=== PATIENT | male | born 1940 | race Caucasian/White ===

== ENCOUNTER → 2016-08-15 | Outpatient (CLI) | payer MEDICARE, BC ==
[2016-08-15 08:35] LABS: CHLORIDE,CL 105 mmol/L (98-110); SODIUM,NA 141 mmol/L (136-146)
== END ==
LOC: MW.CHRC 07:59
PROVIDERS: ATTEND Family Medicine
DX: I10 Essential (primary) hypertension (principal); E78.00 Pure hypercholesterolemia, unspecified; E11.9 Type 2 diabetes mellitus without complications; I25.10 Atherosclerotic heart disease of native coronary artery without angina pectoris
CPT/HCPCS: 36415; 80053; 80061; 83036; 99215

== ENCOUNTER 2019-12-17 11:14 | Emergency (ER) | payer MEDICARE, BC ==
[2019-12-17] MEDS ORDERED: Sodium Chloride 0.9% 2.5 ML Syringe FLUSH PRN (11:31)
[2019-12-17] MEDS ORDERED: Sodium Chloride 0.9% 10 ML Syringe FLUSH PRN (11:31)
--- NOTE | 2019-12-17 11:38 | EDM.PDOC ---
ED HPI GENERAL MEDICAL PROBLEM - General Chief Complaint: Cardiovascular Problem Stated Complaint: HIGH BP, LIGHT HEADED Time Seen by Provider: 12/17/19 11:16 Source of Information: Reports: Patient History Limitations: Reports: No Limitations - History of Present Illness INITIAL COMMENTS - FREE TEXT/NARRATIVE: HISTORY AND PHYSICAL: History of present illness: Patient is a 79-year-old male who presents to the emergency room with complaints of elevated blood pressure and lightheaded. Patient has been seeing a learning and development administrator in [place] for his intermittent chest pain and hypertension. He states he has seen them several times over the past few months and they have been adjusting his home medications. Most recently he was taken off of his atenolol and lisinopril and started on amlodipine, losartan and given nitro sublingual tabs. He also had a cardiac event monitor removed yesterday, results are pending. He does track his blood pressures on his phone daily. This mo rning he woke up with the sensation of feeling light headed and diaphoretic. When he checked his blood pressure it was 200/100's, decided to come in for evaluation. He states he continues to have intermittent chest pain, last episode was last evening. The lightheadedness is constant, states this does not get better or worse with physical activity/head movement/rest. Patient denies any fever, chills, headache, change in vision, syncope or near syncope. Denies any chest pain, back pain, shortness of breath or cough. Denies any abdominal pain, nausea, vomiting, diarrhea, constipation or dysuria. Has not noted any blood in urine or stool. Patient has been eating and drinking appropriately. Past medical history of DM 2, HTN, and cardiac bypass. Review of systems: As per history of present illness and below otherwise all systems reviewed and negative. Past medical history: As per history of present illness and as reviewed below otherwise noncontributory. Surgical history: As per history of present illness and as reviewed below otherwise noncontributory. Social history: See social history for further information Family history: As per history of present illness and as reviewed below otherwise noncontributory. Physical exam: General: Well developed and well nourished 79 year old male. Alert and orientated x 3. Nontoxic in appearance and in no acute distress. Vital signs are stable and have been reviewed by me. Nursing notes were reviewed. HEENT: Atraumatic, normocephalic, pupils equal and reactive bilaterally, negative for conjunctival pallor or scleral icterus, mucous membranes moist, TMs normal bilaterally, throat clear, neck supple, nontender, trachea midline. No drooling or trismus noted. No meningeal signs. No hot potato voice noted. Lungs: Clear to auscultation, breath sounds equal bilaterally, chest nontender. Normal work of breathing, no accessory muscles used. Heart: S1S2, regular rate and rhythm without overt murmur Abdomen: Soft, nondistended, BS, nontender. Negative for masses or hepatosplenomegaly. Negative for costovertebral tenderness. Skin: Intact, warm, dry. No lesions or rashes noted. Hematologic: No petechiae or purpra. Mucosa appropriate color and normal nail bed color and refill. Extremities: Atraumatic, moves all extremities per self without difficulty or deficits, negative for cords or calf pain. Neurovascular unremarkable. Neuro: Awake, alert, oriented. Cranial nerves II through XII unremarkable. Cerebellum unremarkable. Motor and sensory unremarkable throughout. Exam nonfocal. Notes: Well patient is waiting for lab results to return his blood pressure has returned to normotensive. No medications will be given while here. Lab work is unremarkable. CT shows no findings of PE. There is mild peripheral fibroids within both lungs. Coronary artery calcification noted. At 1320 I discussed all findings with patient and (via FT). I did offer admission for further observation, risk vs benefits were reviewed in great detail. Patient and decline admission, states he will call his learning and development administrator today and discuss his ER visit and create follow-up (close relationship with provider). We discussed signs and symptoms that would prompt them to return to the Emergency Department. Medication, follow up and supportive care measures were reviewed and discussed. Voices understanding and is agreeable to plan of care. Denies any further questions or concerns at this time. Diagnostics: CBC, CMP, Troponin, EKG, CXR Therapeutics: Saline lock Prescription: None Impression: Hypertension Plan: 1. Today your lab work was normal. Your CT scan of your chest shows coronary artery calcification, but no evidence of blood clot. Your blood pressure initially was high, but came down on it's own without additional 2. Please follow up with your learning and development administrator. 3. We always encourage you to follow up with your primary care provider or recommended specialist in the next few days for re-evaluation and further care/management. If your symptoms should worsen, new symptoms develop or any of the signs and symptoms we discussed should arise please return to the emergency room or call 911 (if needed). Definitive disposition and diagnosis as appropriate pending reevaluation and review of above. - Related Data Allergies Allergy/AdvReac Type Severity Reaction Status Date / Time No Known Allergies Allergy Verified 07/28/13 08:05 Home Meds: Home Meds Ezetimibe 10 mg PO DAILY 12/17/19 [History] Finasteride 5 mg PO DAILY 12/17/19 [History] Furosemide 20 mg PO DAILY 12/17/19 [History] Metoprolol Succinate 50 mg PO DAILY 12/17/19 [History] Montelukast [Singulair] 10 mg PO DAILY 12/17/19 [History] Nitroglycerin 0.4 mg SL ASDIRECTED 12/17/19 [History] Pravastatin [Pravachol] 40 mg PO BID 12/17/19 [History] Tamsulosin [Flomax] 0.4 mg PO DAILY 12/17/19 [History] Torsemide [Demadex] 20 mg PO BID 12/17/19 [History] amLODIPine [Norvasc] 10 mg PO DAILY 12/17/19 [History] carvediloL [Carvedilol] 6.25 mg PO BID 12/17/19 [History] diazePAM [Valium.] 5 mg PO BID 12/17/19 [History] metFORMIN [Glucophage] 500 mg PO BID 12/17/19 [History] ED ROS GENERAL - Review of Systems Review Of Systems: Comprehensive ROS is negative, except as noted in HPI. ED EXAM, GENERAL - Physical Exam Exam: See Below (See dictation) Course - Vital Signs Last Recorded V/S: Last Vital Signs Temp 97.5 F 12/17/19 13:44 Pulse 86 12/17/19 13:44 Resp 18 12/17/19 13:44 BP 150/77 H 12/17/19 13:44 Pulse Ox 94 L 12/17/19 13:44 - Orders/Labs/Meds Orders: Active Orders 24 hr Category Date Time Status Cardiac Monitoring [RC] . DIRECTED Care 12/17/19 11:31 Active EKG Documentation Completion [RC] STAT Care 12/17/19 11:29 Active Sodium Chloride 0.9% [Saline Flush] Med 12/17/19 11:31 Active 10 ml FLUSH ASDIRECTED PRN Sodium Chloride 0.9% [Saline Flush] Med 12/17/19 11:31 Active 2.5 ml FLUSH ASDIRECTED PRN Saline Lock Insert [OM.PC] Stat Oth 12/17/19 11:31 Ordered Medication Orders Sodium Chloride (Saline Flush) 10 ml FLUSH ASDIRECTED PRN PRN Reason: Keep Vein Open Last Admin: 12/17/19 13:17 Dose: 10 ml Documented by: MORGAN Sodium Chloride (Saline Flush) 2.5 ml FLUSH ASDIRECTED PRN PRN Reason: Keep Vein Open Last Admin: 12/17/19 13:18 Dose: 2.5 ml Documented by: MORGAN Labs: Laboratory Tests 12/17/19 12/17/19 12/17/19 Range/Units 11:20 11:20 11:20 WBC 9.56 (4.0-11.0) K/uL RBC 5.69 (4.50-5.90) M/uL Hgb 15.7 (13.0-17.0) g/dL Hct 49.8 (38.0-50.0) % MCV 87.5 (80.0-98.0) fL MCH 27.6 (27.0-32.0) pg MCHC 31.5 (31.0-37.0) g/dL RDW Std Deviation 45.9 (28.0-62.0) fl RDW Coeff of Carissa 14 (11.0-15.0) % Plt Count 235 (150-400) K/uL MPV 10.10 (7.40-12.00) fL Neut % (Auto) 73.6 (48.0-80.0) % Lymph % (Auto) 13.9 L (16.0-40.0) % [place] % (Auto) 8.9 (0.0-15.0) % Eos % (Auto) 3.1 (0.0-7.0) % Baso % (Auto) 0.5 (0.0-1.5) % Neut # (Auto) 7.0 H (1.4-5.7) K/uL Lymph # (Auto) 1.3 (0.6-2.4) K/uL [place] # (Auto) 0.9 H (0.0-0.8) K/uL Eos # (Auto) 0.3 (0.0-0.7) K/uL Baso # (Auto) 0.1 (0.0-0.1) K/uL Nucleated RBC % 0.0 /100WBC Nucleated RBCs # 0 K/uL Sodium 140 (136-148) mmol/L Potassium 3.8 (3.5-5.1) mmol/L Chloride 100 (98-107) mmol/L Carbon Dioxide 30.6 (21.0-32.0) mmol/L BUN 17 (7.0-18.0) mg/dL Creatinine 1.2 (0.8-1.3) mg/dL Est Cr Clr Drug Dosing 49.92 mL/min Estimated GFR (MDRD) 58.4 ml/min Glucose 201 H (74-106) mg/dL Calcium 8.9 (8.5-10.1) mg/dL Total Bilirubin 0.5 (0.2-1.0) mg/dL AST 21 (15-37) IU/L ALT 38 (14-63) IU/L Alkaline Phosphatase 91 (46-116) U/L Troponin I < 0.050 (0.000-0.056) ng/mL B-Natriuretic Peptide 23 (<100) PG/ML Total Protein 7.8 (6.4-8.2) g/dL Albumin 3.9 (3.4-5.0) g/dL Globulin 3.9 (2.6-4.0) g/dL Albumin/Globulin Ratio 1.0 (0.9-1.6) Urine Color Urine Appearance Urine pH (5.0-8.0) Ur Specific [place] (1.001-1.035) Urine Protein (NEGATIVE) mg/dL Urine Glucose (UA) (NEGATIVE) mg/dL Urine Ketones (NEGATIVE) mg/dL Urine Occult Blood (NEGATIVE) Urine Nitrite (NEGATIVE) Urine Bilirubin (NEGATIVE) Urine Urobilinogen (<2.0) EU/dL Ur Leukocyte Esterase (NEGATIVE) 12/17/19 Range/Units 13:10 WBC (4.0-11.0) K/uL RBC (4.50-5.90) M/uL Hgb (13.0-17.0) g/dL Hct (38.0-50.0) % MCV (80.0-98.0) fL MCH (27.0-32.0) pg MCHC (31.0-37.0) g/dL RDW Std Deviation (28.0-62.0) fl RDW Coeff of Carissa (11.0-15.0) % Plt Count (150-400) K/uL MPV (7.40-12.00) fL Neut % (Auto) (48.0-80.0) % Lymph % (Auto) (16.0-40.0) % [place] % (Auto) (0.0-15.0) % Eos % (Auto) (0.0-7.0) % Baso % (Auto) (0.0-1.5) % Neut # (Auto) (1.4-5.7) K/uL Lymph # (Auto) (0.6-2.4) K/uL [place] # (Auto) (0.0-0.8) K/uL Eos # (Auto) (0.0-0.7) K/uL Baso # (Auto) (0.0-0.1) K/uL Nucleated RBC % /100WBC Nucleated RBCs # K/uL Sodium (136-148) mmol/L Potassium (3.5-5.1) mmol/L Chloride (98-107) mmol/L Carbon Dioxide (21.0-32.0) mmol/L BUN (7.0-18.0) mg/dL Creatinine (0.8-1.3) mg/dL Est Cr Clr Drug Dosing mL/min Estimated GFR (MDRD) ml/min Glucose (74-106) mg/dL Calcium (8.5-10.1) mg/dL Total Bilirubin (0.2-1.0) mg/dL AST (15-37) IU/L ALT (14-63) IU/L Alkaline Phosphatase (46-116) U/L Troponin I (0.000-0.056) ng/mL B-Natriuretic Peptide (<100) PG/ML Total Protein (6.4-8.2) g/dL Albumin (3.4-5.0) g/dL Globulin (2.6-4.0) g/dL Albumin/Globulin Ratio (0.9-1.6) Urine Color YELLOW Urine Appearance CLEAR Urine pH 7.5 (5.0-8.0) Ur Specific [place] 1.010 (1.001-1.035) Urine Protein NEGATIVE (NEGATIVE) mg/dL Urine Glucose (UA) NEGATIVE (NEGATIVE) mg/dL Urine Ketones NEGATIVE (NEGATIVE) mg/dL Urine Occult Blood NEGATIVE (NEGATIVE) Urine Nitrite NEGATIVE (NEGATIVE) Urine Bilirubin NEGATIVE (NEGATIVE) Urine Urobilinogen 0.2 (<2.0) EU/dL Ur Leukocyte Esterase NEGATIVE (NEGATIVE) Meds: Medications Generic Name Dose Route Start Last Admin Trade Name Freq PRN Reason Stop Dose Admin Sodium Chloride 10 ml 12/17/19 11:31 12/17/19 13:17 Saline Flush FLUSH 10 ml ASDIRECTED PRN Administration Keep Vein Open Sodium Chloride 2.5 ml 12/17/19 11:31 12/17/19 13:18 Saline Flush FLUSH 2.5 ml ASDIRECTED PRN Administration Keep Vein Open Departure - Departure Time of Disposition: 13:06 Disposition: Home, Self-Care 01 Clinical Impression: Hypertension Qualifiers: Hypertension type: essential hypertension Qualified Code(s): I10 - Essential (primary) hypertension Instructions: Hypertension, Adult, [id number] Referrals: Malick Sweet MD [Primary Care Provider] - Forms: ED Department Discharge Additional Instructions: The following information is given to patients seen in the emergency department who are being discharged to home. This information is to outline your options for follow-up care. We provide all patients seen in our emergency department with a follow-up referral. The need for follow-up, as well as the timing and circumstances, are variable depending upon the specifics of your emergency department visit. If you don't have a primary care physician on staff, we will provide you with a referral. We always advise you to contact your personal physician following an emergency department visit to inform them of the circumstance of the visit and for follow-up with them and/or the need for any referrals to a consulting specialist. The emergency department will also refer you to a specialist when appropriate. This referral assures that you have the opportunity for follow-up care with a specialist. All of these measure are taken in an effort to provide you with optimal care, which includes your follow-up. Under all circumstances we always encourage you to contact your private physician who remains a resource for coordinating your care. When calling for follow-up care, please make the office aware that this follow-up is from your recent emergency room visit. If for any reason you are refused follow-up, please contact the [facility] Emergency Department at and asked to speak to the emergency department charge nurse. [facility] [address], [place] [address] [facility] [address] [place] [address] Thank you for choosing the [facility] emergency department in [place] for your medical needs today. It was a pleasure caring for you. Today you were seen in the emergency department for high blood pressure and lightheadedness. 1. Today your lab work was normal. Your CT scan of your chest shows coronary artery calcification, but no evidence of blood clot. Your blood pressure initially was high, but came down on it's own without additional 2. Please follow up with your learning and development administrator. 3. We always encourage you to follow up with your primary care provider or recommended specialist in the next few days for re-evaluation and further care/management. If your symptoms should worsen, new symptoms develop or any of the signs and symptoms we discussed should arise please return to the emergency room or call 911 (if needed). Sepsis Event Note (ED) - Focused Exam Vital Signs: Vital Signs Temp Pulse Resp BP Pulse Ox 12/17/19 13:44 97.5 F 86 18 150/77 H 94 L 12/17/19 12:30 75 18 147/79 H 96 12/17/19 12:00 72 17 163/85 H 98 12/17/19 11:31 97.8 F 94 20 212/109 H 94 L - My Orders Last 24 Hours: My Active Orders 12/17/19 11:29 EKG Documentation Completion [RC] STAT 12/17/19 11:31 Cardiac Monitoring [RC] . DIRECTED Sodium Chloride 0.9% [Saline Flush] 10 ml FLUSH ASDIRECTED PRN Sodium Chloride 0.9% [Saline Flush] 2.5 ml FLUSH ASDIRECTED PRN Saline Lock Insert [OM.PC] Stat - Assessment/Plan Last 24 Hours: My Active Orders 12/17/19 11:29 EKG Documentation Completion [RC] STAT 12/17/19 11:31 Cardiac Monitoring [RC] . DIRECTED Sodium Chloride 0.9% [Saline Flush] 10 ml FLUSH ASDIRECTED PRN Sodium Chloride 0.9% [Saline Flush] 2.5 ml FLUSH ASDIRECTED PRN Saline Lock Insert [OM.PC] Stat
[2019-12-17 12:05] LABS: BLOOD UREA NITROGEN,BUN 17 mg/dL (7.0-18.0); CARBON DIOXIDE,CO2 30.6 mmol/L (21.0-32.0); CHLORIDE,CL 100 mmol/L (98-107); GLUCOSE RANDOM 201 mg/dL (74-106); POTASSIUM,K 3.8 mmol/L (3.5-5.1); SODIUM,NA 140 mmol/L (136-148)
--- NOTE | 2019-12-17 12:07 | CR ---
Chest: Portable view of the chest was obtained. Comparison: Prior chest x-ray of 09/12/17. Heart size is within normal limits for portable technique. Tortuous thoracic aorta is noted. Previous sternotomy is seen. Lungs are clear with no acute parenchymal change. Bony structures are grossly intact. Impression: 1. Nothing acute is appreciated on portable chest x-ray. Diagnostic code #2 This report was dictated in MDT
--- NOTE | 2019-12-17 13:02 | CT ---
CT chest Technique: Multiple axial sections through the chest were obtained. Intravenous contrast was utilized. Study performed as a pulmonary angiogram protocol. Findings: Pulmonary arteries are well opacified. No filling defects are seen to indicate pulmonary embolism. Coronary artery calcification is seen. Aorta shows atherosclerotic change with no aneurysm. Mediastinum and hilar regions show no adenopathy. No axillary adenopathy is identified. Slight interstitial fibrosis is seen within the periphery of both lungs. No acute parenchymal change is appreciated. Bone window settings were reviewed. Scattered degenerative change is noted within the spine. No acute osseous finding is appreciated. Impression: 1. No findings of pulmonary embolism. 2. Mild peripheral fibrosis within both lungs. 3. Coronary artery calcification and other findings as noted above. Diagnostic code #3 This report was dictated in MDT
[2019-12-17] MEDS ORDERED: Iopamidol 755 MG/ML 50 ML Bottle IV ONE (19:15)
== END 2019-12-17 13:50 | disposition home or self-care (01) ==
LOC: MW.ED 11:14
DX: I10 Essential (primary) hypertension (principal); E11.9 Type 2 diabetes mellitus without complications; Z79.84 Long term (current) use of oral hypoglycemic drugs; Z79.899 Other long term (current) drug therapy
CPT/HCPCS: 36415; 71045; 71275; 80053; 81003; 83880; 84484; 85025; 93005; 99284; Q9967

== ENCOUNTER 2019-12-20 14:40 | Observation (INO) | payer MEDICARE, BC, OTHER ==
[2019-12-20] MEDS ORDERED: Sodium Chloride 0.9% 10 ML Syringe FLUSH PRN (15:12)
[2019-12-20] MEDS ORDERED: Sodium Chloride 0.9% 2.5 ML Syringe FLUSH PRN (15:12)
[2019-12-20] MEDS ORDERED: Aspirin 81 MG Tab.Chew PO ONE (15:13)
--- NOTE | 2019-12-20 15:21 | EDM.PDOC ---
ED HPI GENERAL MEDICAL PROBLEM - General Chief Complaint: Chest Pain Stated Complaint: HIGH BLOOD PRESSURE Time Seen by Provider: 12/20/19 14:45 Source of Information: Reports: Patient History Limitations: Reports: No Limitations - History of Present Illness INITIAL COMMENTS - FREE TEXT/NARRATIVE: HISTORY AND PHYSICAL: History of present illness: Patient is a 79-year-old male who presents to the ED today with concern of intermittent chest pain that is been off-and-on over the past 2 to 3 days. Patient states that he is unsure if his blood pressure is related to the chest p ain as he has had recent blood pressure medication adjustments. Patient states 1 week ago he saw his drill grinder in [place] and they took him off some of his blood pressure medications and thought that maybe this was related to his chest pain. Patient states that his chest pain is exertional and also become short of breath with activity. 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 Patient states he did have a stress test 6 months ago and was told at that time that things looked okay. Patient states he did take 1 baby aspirin today and states he had an episode of chest pain 1 hour prior to arrival to the ED but is not currently having chest pain at this time. Patient states when the chest pain occurs that it radiates into the left shoulder and states that it lasts a few seconds before it disappears. Denies any other symptoms or concerns. Patient states he also has a history of type 2 diabetes and a strong family history of CAD. Patient denies fever, chills, or cough. Denies headache, neck stiff ness, change in vision, syncope, or near syncope. Denies nausea, vomiting, abdominal pain, diarrhea, constipation, or dysuria. Has not noted any blood in urine or stool. Patient has been eating and drinking appropriately. Review of systems: As per history of present illness and below otherwise all systems reviewed and negative. Past medical history: As per history of present illness and as reviewed below otherwise noncontributory. Surgical history: As per history of present illness and as reviewed below otherwise noncontributory. Social history: See social history for further information Family history: As per history of present illness and as reviewed below otherwise noncontributory. Physical exam: General: Patient is alert, oriented, and in no acute distress. Patient laying comfortably on exam table. HEENT: Atraumatic, normocephalic, pupils equal and reactive bilaterally, negative for conjunctival pallor or scleral icterus, mucous membranes moist, TMs normal bilaterally, throat clear, neck supple, nontender, trachea midline. No drooling or trismus noted. No meningeal signs. No hot potato voice noted. Lungs: Clear to auscultation, breath sounds equal bilaterally, chest nontender. Heart: S1S2, regular rate and rhythm without overt murmur Abdomen: Soft, nondistended, nontender. Negative for masses or hepatosplenome yariel. Negative for costovertebral tenderness. Pelvis: Stable nontender. Genitourinary: Deferred. Rectal: Deferred. Skin: Intact, warm, dry. No lesions or rashes noted. Extremities: Atraumatic, negative for cords or calf pain. Neurovascular unremarkable. Neuro: Awake, alert, oriented. Cranial nerves II through XII unremarkable. Cerebellum unremarkable. Motor and sensory unremarkable throughout. Exam nonfocal. Notes: Heart Score 5 (pending troponin) and moderate risk Talked to Dr. Lyon, hospitalist wholesale diamond broker, and will admit patient to observation telemetry. Voices understanding and is agreeable to plan of care. Denies any further questions or concerns at this time. Diagnostics: CBC, CMP, UA, troponin, EKG, chest x-ray, cardiac monitoring, COVID19 Therapeutics: 3 baby ASA, saline lock, Impression: Chest pain r/o ACS Plan: Admission to observation telemetry to Dr. Lyon Definitive disposition and diagnosis as appropriate pending reevaluation and review of above. shoulder and chest pain Pain Score (Numeric/FACES): 8 - Related Data Allergies Allergy/AdvReac Type Severity Reaction Status Date / Time No Known Allergies Allergy Verified 12/20/19 14:53 Home Meds: Home Meds RX: Finasteride 5 mg PO DAILY 12/17/19 [History] RX: Montelukast [Singulair] 10 mg PO DAILY 12/17/19 [History] RX: Nitroglycerin 0.4 mg SL ASDIRECTED 12/17/19 [History] RX: Pravastatin [Pravachol] 80 mg PO DAILY 12/17/19 [History] RX: Tamsulosin [Flomax] 0.4 mg PO DAILY 12/17/19 [History] RX: Torsemide [Demadex] 40 mg PO DAILY 12/17/19 [History] RX: diazePAM [Valium.] 5 mg PO BID 12/17/19 [History] RX: metFORMIN [Glucophage] 1,000 mg PO BID 12/17/19 [History] carvediloL [Carvedilol] 6.25 mg PO BID 12/17/19 [History] Cholecalciferol (Vitamin D3) [Vitamin D3] 5,000 unit PO DAILY 12/20/19 [History] RX: Aspirin [Low Dose Aspirin EC] 81 mg PO DAILY 12/20/19 [History] RX: Losartan [Cozaar] 100 mg PO DAILY 12/20/19 [History] RX: Non-Formulary Medication [NF Drug] 1 tab PO DAILY 12/20/19 [History] Turm/Ging/Ha/Yuc/Wilton/Aldair/Hor [Tumersaid Tablet] 12/20/19 [History] Past Medical History HEENT History: Reports: None Cardiovascular History: Reports: Bypass, Hypertension, SOB on Exertion Respiratory History: Reports: None Gastrointestinal History: Reports: None Genitourinary History: Reports: None Musculoskeletal History: Reports: None Neurological History: Reports: None Psychiatric History: Reports: None Endocrine/Metabolic History: Reports: Diabetes, Type II Hematologic History: Reports: None Immunologic History: Reports: None Oncologic (Cancer) History: Reports: None Dermatologic History: Reports: None - Infectious Disease History Infectious Disease History: Reports: Chicken Pox, Measles Social & Family History - Family History Family Medical History: Noncontributory - Tobacco Use Smoking Status *Q: Former Smoker Used Tobacco, but Quit: Yes Month/Year Tobacco Last Used: 04/1979 - Caffeine Use Caffeine Use: Reports: Coffee - Recreational Drug Use Recreational Drug Use: No ED ROS GENERAL - Review of Systems Review Of Systems: Comprehensive ROS is negative, except as noted in HPI. ED EXAM, GENERAL - Physical Exam Exam: See Below (see dictation) Course - Vital Signs Last Recorded V/S: Last Vital Signs Temp 96.9 F 12/20/19 14:50 Pulse 88 12/20/19 15:22 Resp 21 H 12/20/19 15:22 BP 141/78 H 12/20/19 15:22 Pulse Ox 92 L 12/20/19 15:22 - Orders/Labs/Meds Orders: Active Orders 24 hr Category Date Time Status Admission Status [Patient Status] [ADT] Stat ADT 12/20/19 16:22 Ordered Cardiac Monitoring [RC] . DIRECTED Care 12/20/19 15:12 Active EKG Documentation Completion [RC] STAT Care 12/20/19 15:12 Active CORONAVIRUS COVID-19 PCR PHL Stat Lab 12/20/19 16:19 Ordered Sodium Chloride 0.9% [Saline Flush] Med 12/20/19 15:12 Active 10 ml FLUSH ASDIRECTED PRN Sodium Chloride 0.9% [Saline Flush] Med 12/20/19 15:12 Active 2.5 ml FLUSH ASDIRECTED PRN Saline Lock Insert [OM.PC] Stat Oth 12/20/19 15:12 Ordered Medication Orders Sodium Chloride (Saline Flush) 10 ml FLUSH ASDIRECTED PRN PRN Reason: Keep Vein Open Last Admin: 12/20/19 15:18 Dose: 10 ml Documented by: MILLA Sodium Chloride (Saline Flush) 2.5 ml FLUSH ASDIRECTED PRN PRN Reason: Keep Vein Open Last Admin: 12/20/19 15:18 Dose: 2.5 ml Documented by: MILLA Labs: Laboratory Tests 12/20/19 12/20/19 12/20/19 Range/Units 14:50 14:50 15:30 WBC 11.79 H (4.0-11.0) K/uL RBC 5.85 (4.50-5.90) M/uL Hgb 16.2 (13.0-17.0) g/dL Hct 50.7 H (38.0-50.0) % MCV 86.7 (80.0-98.0) fL MCH 27.7 (27.0-32.0) pg MCHC 32.0 (31.0-37.0) g/dL RDW Std Deviation 45.6 (28.0-62.0) fl RDW Coeff of Carissa 14 (11.0-15.0) % Plt Count 247 (150-400) K/uL MPV 10.00 (7.40-12.00) fL Neut % (Auto) 77.9 (48.0-80.0) % Lymph % (Auto) 10.8 L (16.0-40.0) % [place] % (Auto) 8.3 (0.0-15.0) % Eos % (Auto) 2.7 (0.0-7.0) % Baso % (Auto) 0.3 (0.0-1.5) % Neut # (Auto) 9.2 H (1.4-5.7) K/uL Lymph # (Auto) 1.3 (0.6-2.4) K/uL Sioux # (Auto) 1.0 H (0.0-0.8) K/uL Eos # (Auto) 0.3 (0.0-0.7) K/uL Baso # (Auto) 0.0 (0.0-0.1) K/uL Nucleated RBC % 0.0 /100WBC Nucleated RBCs # 0 K/uL Sodium 138 (136-148) mmol/L Potassium 4.2 (3.5-5.1) mmol/L Chloride 99 (98-107) mmol/L Carbon Dioxide 29.6 (21.0-32.0) mmol/L BUN 20 H (7.0-18.0) mg/dL Creatinine 1.3 (0.8-1.3) mg/dL Est Cr Clr Drug Dosing 46.08 mL/min Estimated GFR (MDRD) 53.3 ml/min Glucose 183 H (74-106) mg/dL Calcium 8.9 (8.5-10.1) mg/dL Total Bilirubin 0.4 (0.2-1.0) mg/dL AST 19 (15-37) IU/L ALT 40 (14-63) IU/L Alkaline Phosphatase 91 (46-116) U/L Troponin I < 0.050 (0.000-0.056) ng/mL Total Protein 7.9 (6.4-8.2) g/dL Albumin 3.8 (3.4-5.0) g/dL Globulin 4.1 H (2.6-4.0) g/dL Albumin/Globulin Ratio 0.9 (0.9-1.6) Urine Color YELLOW Urine Appearance CLEAR Urine pH 7.0 (5.0-8.0) Ur Specific [place] 1.015 (1.001-1.035) Urine Protein NEGATIVE (NEGATIVE) mg/dL Urine Glucose (UA) NEGATIVE (NEGATIVE) mg/dL Urine Ketones NEGATIVE (NEGATIVE) mg/dL Urine Occult Blood NEGATIVE (NEGATIVE) Urine Nitrite NEGATIVE (NEGATIVE) Urine Bilirubin NEGATIVE (NEGATIVE) Urine Urobilinogen 0.2 (<2.0) EU/dL Ur Leukocyte Esterase NEGATIVE (NEGATIVE) Meds: Medications Generic Name Dose Route Start Last Admin Trade Name Freq PRN Reason Stop Dose Admin Sodium Chloride 10 ml 12/20/19 15:12 12/20/19 15:18 Saline Flush FLUSH 10 ml ASDIRECTED PRN Administration Keep Vein Open Sodium Chloride 2.5 ml 12/20/19 15:12 12/20/19 15:18 Saline Flush FLUSH 2.5 ml ASDIRECTED PRN Administration Keep Vein Open Discontinued Medications Generic Name Dose Route Start Last Admin Trade Name Freq PRN Reason Stop Dose Admin Aspirin 243 mg 12/20/19 15:13 12/20/19 15:17 Aspirin PO 12/20/19 15:14 243 mg ONETIME ONE Administration Departure - Departure Time of Disposition: 16:24 Disposition: Refer to Observation Clinical Impression: Chest pain, rule out acute myocardial infarction - Discharge Information Referrals: La Sweet MD [Primary Care Provider] - Forms: ED Department Discharge Sepsis Event Note (ED) - Evaluation Sepsis Screening Result: No Definite Risk - Focused Exam Vital Signs: Vital Signs Temp Pulse Resp BP Pulse Ox 12/20/19 15:22 88 21 H 141/78 H 92 L 12/20/19 14:50 96.9 F 86 19 152/96 H 96 - My Orders Last 24 Hours: My Active Orders 12/20/19 15:12 Cardiac Monitoring [RC] . DIRECTED EKG Documentation Completion [RC] STAT Sodium Chloride 0.9% [Saline Flush] 10 ml FLUSH ASDIRECTED PRN Sodium Chloride 0.9% [Saline Flush] 2.5 ml FLUSH ASDIRECTED PRN Saline Lock Insert [OM.PC] Stat 12/20/19 16:19 CORONAVIRUS COVID-19 PCR PHL Stat 12/20/19 16:22 Admission Status [Patient Status] [ADT] Stat - Assessment/Plan Last 24 Hours: My Active Orders 12/20/19 15:12 Cardiac Monitoring [RC] . DIRECTED EKG Documentation Completion [RC] STAT Sodium Chloride 0.9% [Saline Flush] 10 ml FLUSH ASDIRECTED PRN Sodium Chloride 0.9% [Saline Flush] 2.5 ml FLUSH ASDIRECTED PRN Saline Lock Insert [OM.PC] Stat 12/20/19 16:19 CORONAVIRUS COVID-19 PCR PHL Stat 12/20/19 16:22 Admission Status [Patient Status] [ADT] Stat
[2019-12-20 15:44] LABS: BLOOD UREA NITROGEN,BUN 20 mg/dL (7.0-18.0); CARBON DIOXIDE,CO2 29.6 mmol/L (21.0-32.0); CHLORIDE,CL 99 mmol/L (98-107); GLUCOSE RANDOM 183 mg/dL (74-106); POTASSIUM,K 4.2 mmol/L (3.5-5.1); SODIUM,NA 138 mmol/L (136-148)
--- NOTE | 2019-12-20 15:44 | CR ---
Chest: Frontal view of the chest was obtained utilizing portable technique. Comparison: Prior chest x-ray of 12/17/19. Heart size and mediastinum are normal. Previous sternotomy is seen. Lungs show no acute parenchymal change. Bony structures are grossly intact. Impression: 1. Nothing acute is appreciated on portable chest x-ray. Diagnostic code #1 This report was dictated in MDT
[2019-12-20] MEDS: Nitroglycerin 0.4 MG Tab.SL SL PRN ×2 (17:04→17:15)
[2019-12-20 17:20] LABS: HEMOGLOBIN A1C 7.4 % (4.5-6.2)
--- NOTE | 2019-12-20 17:39 | PCM.HP.2 ---
<Damian Mann - Last Filed: 12/20/19 19:20> H&P History of Present Illness - General Date of Service: 12/20/19 Admit Problem/Dx: Admission Diagnosis/Problem Admission Diagnosis/Problem Chest pain Source of Information: Patient History Limitations: Reports: No Limitations - History of Present Illness Initial Comments - Free Text/Narative: Patient is a 79-year-old male with significant past medical history hypertension, CABG 17 years ago, diabetes: Presenting today with sporadic chest pain x2 to 3 days. Of note patient endorses recent change in blood pressure medications after having been seen by his medical officer psychiatry in [place]; Cardiac history per patient; stress test completed 6 months ago with no obvious issues. Patient states taking 1 baby aspirin prior to arrival to ED. Last echo 2017; ejection fraction 60% Patient was seen here in our ED 2 days prior secondary to elevated blood pressure and lightheadedness. Endorsed on stopping his lisinopril and atenolol and was started on amlodipine and losartan and was also given nitro sublingual PRN for chest pain. Bedside: Currently asymptomatic. Mentions to me recording his BP on his phone but could not get his BP under control; cannot recall BP numbers. Otherwise has no acute complaints. CAnnot recall history of heart failure but endorses lower extremity swelling was worse and a "water pill" and his amlodipine were held by his/a medical officer psychiatry in [place]. Andres was also followed by cardiology in [place] since he spends winter down there; was told he might need an Angiogram; scheduled for May due to COVID. shoulder and chest pain Pain Score (Numeric/FACES): 8 - Related Data Allergies/Adverse Reactions: Allergies Allergy/AdvReac Type Severity Reaction Status Date / Time No Known Allergies Allergy Verified 12/20/19 18:21 Home Medications: Home Meds Finasteride 5 mg PO DAILY 12/17/19 [History] Montelukast [Singulair] 10 mg PO BEDTIME 12/17/19 [History] Nitroglycerin 0.4 mg SL ASDIRECTED 12/17/19 [History] Pravastatin [Pravachol] 80 mg PO BEDTIME 12/17/19 [History] Tamsulosin [Flomax] 0.4 mg PO DAILY 12/17/19 [History] Torsemide [Demadex] 40 mg PO DAILY 12/17/19 [History] carvediloL [Carvedilol] 6.25 mg PO BID 12/17/19 [History] diazePAM [Valium.] 5 mg PO BID 12/17/19 [History] metFORMIN [Glucophage] 1,000 mg PO BID 12/17/19 [History] Aspirin [Low Dose Aspirin EC] 81 mg PO BEDTIME 12/20/19 [History] Cholecalciferol (Vitamin D3) [Vitamin D3] 5,000 unit PO DAILY 12/20/19 [History] Losartan [Cozaar] 100 mg PO DAILY 12/20/19 [History] Non-Formulary Medication [NF Drug] 1 tab PO DAILY 12/20/19 [History] Turm/Ging/Ha/Yuc/Wilton/Aldair/Hor [Tumersaid Tablet] 12/20/19 [History] Nitroglycerin [Nitrostat] 0.4 mg SL Q5M PRN tab.sl 12/21/19 [Rx] Past Medical History HEENT History: Reports: None Cardiovascular History: Reports: Bypass, Hypertension, SOB on Exertion Respiratory History: Reports: None Gastrointestinal History: Reports: None Genitourinary History: Reports: None Musculoskeletal History: Reports: None Neurological History: Reports: None Psychiatric History: Reports: None Endocrine/Metabolic History: Reports: Diabetes, Type II Hematologic History: Reports: None Immunologic History: Reports: None Oncologic (Cancer) History: Reports: None Dermatologic History: Reports: None - Infectious Disease History Infectious Disease History: Reports: Chicken Pox, Measles Social & Family History - Family History Family Medical History: Noncontributory - Tobacco Use Smoking Status *Q: Former Smoker Used Tobacco, but Quit: Yes Month/Year Tobacco Last Used: 04/1979 - Caffeine Use Caffeine Use: Reports: Coffee - Recreational Drug Use Recreational Drug Use: No H&P Review of Systems - Review of Systems: Review Of Systems: See Below General: Reports: No Symptoms HEENT: Reports: No Symptoms Pulmonary: Reports: No Symptoms Cardiovascular: Reports: No Symptoms Gastrointestinal: Reports: No Symptoms Genitourinary: Reports: No Symptoms Musculoskeletal: Reports: No Symptoms Skin: Reports: No Symptoms Psychiatric: Reports: No Symptoms Neurological: Reports: No Symptoms Exam - Exam Exam: See Below - Vital Signs Vital Signs: Last Vital Signs Temp 96.9 F 12/20/19 14:50 Pulse 88 12/20/19 15:22 Resp 21 H 12/20/19 15:22 BP 113/66 12/20/19 17:15 Pulse Ox 92 L 12/20/19 15:22 Weight: 111.13 kg - Exam Quality Assessment: No: Supplemental Oxygen General: Alert, Oriented, Cooperative HEENT: EOMI, Mucosa Moist & [place] Level Neck: Supple, Trachea Midline Lungs: Clear to Auscultation, Normal Respiratory Effort Cardiovascular: Regular Rate, Regular Rhythm GI/Abdominal Exam: Soft, Non-Tender, Other (obeses; abdominal hernia ) Back Exam: Normal Inspection Extremities: Other (+1-2 pitting edema upto mid-shins ) Skin: Warm Neurological: Cranial Nerves Intact Neuro Extensive - Mental Status: Alert, Oriented x3 Neuro Extensive - Motor, Sensory, Reflexes: CN II-XII Intact Psychiatric: Alert - Patient Data Lab Results Last 24 hrs: Laboratory Results - last 24 hr 12/20/19 12/20/19 12/20/19 Range/Units 14:50 14:50 14:50 WBC 11.79 H (4.0-11.0) K/uL RBC 5.85 (4.50-5.90) M/uL Hgb 16.2 (13.0-17.0) g/dL Hct 50.7 H (38.0-50.0) % MCV 86.7 (80.0-98.0) fL MCH 27.7 (27.0-32.0) pg MCHC 32.0 (31.0-37.0) g/dL RDW Std Deviation 45.6 (28.0-62.0) fl RDW Coeff of Carissa 14 (11.0-15.0) % Plt Count 247 (150-400) K/uL MPV 10.00 (7.40-12.00) fL Neut % (Auto) 77.9 (48.0-80.0) % Lymph % (Auto) 10.8 L (16.0-40.0) % [place] % (Auto) 8.3 (0.0-15.0) % Eos % (Auto) 2.7 (0.0-7.0) % Baso % (Auto) 0.3 (0.0-1.5) % Neut # (Auto) 9.2 H (1.4-5.7) K/uL Lymph # (Auto) 1.3 (0.6-2.4) K/uL [place] # (Auto) 1.0 H (0.0-0.8) K/uL Eos # (Auto) 0.3 (0.0-0.7) K/uL Baso # (Auto) 0.0 (0.0-0.1) K/uL Nucleated RBC % 0.0 /100WBC Nucleated RBCs # 0 K/uL Sodium 138 (136-148) mmol/L Potassium 4.2 (3.5-5.1) mmol/L Chloride 99 (98-107) mmol/L Carbon Dioxide 29.6 (21.0-32.0) mmol/L BUN 20 H (7.0-18.0) mg/dL Creatinine 1.3 (0.8-1.3) mg/dL Est Cr Clr Drug Dosing 46.08 mL/min Estimated GFR (MDRD) 53.3 ml/min Glucose 183 H (74-106) mg/dL Hemoglobin A1c 7.4 H (4.5-6.2) % Calcium 8.9 (8.5-10.1) mg/dL Total Bilirubin 0.4 (0.2-1.0) mg/dL AST 19 (15-37) IU/L ALT 40 (14-63) IU/L Alkaline Phosphatase 91 (46-116) U/L Troponin I < 0.050 (0.000-0.056) ng/mL Total Protein 7.9 (6.4-8.2) g/dL Albumin 3.8 (3.4-5.0) g/dL Globulin 4.1 H (2.6-4.0) g/dL Albumin/Globulin Ratio 0.9 (0.9-1.6) Urine Color Urine Appearance Urine pH (5.0-8.0) Ur Specific [place] (1.001-1.035) Urine Protein (NEGATIVE) mg/dL Urine Glucose (UA) (NEGATIVE) mg/dL Urine Ketones (NEGATIVE) mg/dL Urine Occult Blood (NEGATIVE) Urine Nitrite (NEGATIVE) Urine Bilirubin (NEGATIVE) Urine Urobilinogen (<2.0) EU/dL Ur Leukocyte Esterase (NEGATIVE) SARS Virus RNA (PCR) (NEGATIVE) 12/20/19 12/20/19 Range/Units 15:30 16:25 WBC (4.0-11.0) K/uL RBC (4.50-5.90) M/uL Hgb (13.0-17.0) g/dL Hct (38.0-50.0) % MCV (80.0-98.0) fL MCH (27.0-32.0) pg MCHC (31.0-37.0) g/dL RDW Std Deviation (28.0-62.0) fl RDW Coeff of Carissa (11.0-15.0) % Plt Count (150-400) K/uL MPV (7.40-12.00) fL Neut % (Auto) (48.0-80.0) % Lymph % (Auto) (16.0-40.0) % [place] % (Auto) (0.0-15.0) % Eos % (Auto) (0.0-7.0) % Baso % (Auto) (0.0-1.5) % Neut # (Auto) (1.4-5.7) K/uL Lymph # (Auto) (0.6-2.4) K/uL [place] # (Auto) (0.0-0.8) K/uL Eos # (Auto) (0.0-0.7) K/uL Baso # (Auto) (0.0-0.1) K/uL Nucleated RBC % /100WBC Nucleated RBCs # K/uL Sodium (136-148) mmol/L Potassium (3.5-5.1) mmol/L Chloride (98-107) mmol/L Carbon Dioxide (21.0-32.0) mmol/L BUN (7.0-18.0) mg/dL Creatinine (0.8-1.3) mg/dL Est Cr Clr Drug Dosing mL/min Estimated GFR (MDRD) ml/min Glucose (74-106) mg/dL Hemoglobin A1c (4.5-6.2) % Calcium (8.5-10.1) mg/dL Total Bilirubin (0.2-1.0) mg/dL AST (15-37) IU/L ALT (14-63) IU/L Alkaline Phosphatase (46-116) U/L Troponin I (0.000-0.056) ng/mL Total Protein (6.4-8.2) g/dL Albumin (3.4-5.0) g/dL Globulin (2.6-4.0) g/dL Albumin/Globulin Ratio (0.9-1.6) Urine Color YELLOW Urine Appearance CLEAR Urine pH 7.0 (5.0-8.0) Ur Specific [place] 1.015 (1.001-1.035) Urine Protein NEGATIVE (NEGATIVE) mg/dL Urine Glucose (UA) NEGATIVE (NEGATIVE) mg/dL Urine Ketones NEGATIVE (NEGATIVE) mg/dL Urine Occult Blood NEGATIVE (NEGATIVE) Urine Nitrite NEGATIVE (NEGATIVE) Urine Bilirubin NEGATIVE (NEGATIVE) Urine Urobilinogen 0.2 (<2.0) EU/dL Ur Leukocyte Esterase NEGATIVE (NEGATIVE) SARS Virus RNA (PCR) NEGATIVE (NEGATIVE) Result Diagrams: 12/20/19 14:50 12/20/19 14:50 Sepsis Event Note - Evaluation Sepsis Screening Result: No Definite Risk - Focused Exam Vital Signs: Vital Signs Temp Pulse Resp BP BP Pulse Ox 12/20/19 17:15 113/66 12/20/19 17:04 131/83 12/20/19 15:22 88 21 H 141/78 H 92 L 12/20/19 14:50 96.9 F 86 19 152/96 H 96 Problem List Initiated/Reviewed/Updated: Yes Orders Last 24hrs: Active Orders 24 hr Category Date Time Status Admission Status [Patient Status] [ADT] Stat ADT 12/20/19 16:22 Active Accu Check [Blood Glucose Check, Bedside] [RC] TIDMEALS Care 12/20/19 17:04 Active Cardiac Monitoring [RC] . DIRECTED Care 12/20/19 15:12 Active EKG Documentation Completion [RC] STAT Care 12/20/19 15:12 Active Intake and Output [RC] ASDIRECTED Care 12/20/19 16:58 Active Telemetry Monitoring [Cardiac Monitoring] [RC] . Care 12/20/19 16:57 Active DIRECTED Vital Signs [RC] PER UNIT ROUTINE Care 12/20/19 16:[address] [place] [employer] Diet [DIET] Diet 12/20/19 Dinner Active TROPONIN I [CHEM] Routine Lab 12/20/19 17:30 Ordered TROPONIN I [CHEM] Routine Lab 12/20/19 21:00 Ordered TSH [CHEM] Routine Lab 12/20/19 14:50 Received Insulin Aspart [NovoLOG] Med 12/21/19 07:30 Active See Protocol SUBCUT TIDAC Nitroglycerin [Nitrostat] Med 12/20/19 16:59 Active 0.4 mg SL Q5M PRN Sodium Chloride 0.9% [Saline Flush] Med 12/20/19 15:12 Active 10 ml FLUSH ASDIRECTED PRN Sodium Chloride 0.9% [Saline Flush] Med 12/20/19 15:12 Active 2.5 ml FLUSH ASDIRECTED PRN Saline Lock Insert [OM.PC] Stat Oth 12/20/19 15:12 Ordered Medication Orders Insulin Aspart (Novolog) 0 unit SUBCUT TIDAC DIOR; Protocol Nitroglycerin (Nitrostat) 0.4 mg SL Q5M PRN PRN Reason: Chest Pain Last Admin: 12/20/19 17:15 Dose: 0.4 mg Documented by: Admin: 12/20/19 17:04 Dose: 0.4 mg Documented by: MILLA Sodium Chloride (Saline Flush) 10 ml FLUSH ASDIRECTED PRN PRN Reason: Keep Vein Open Last Admin: 12/20/19 15:18 Dose: 10 ml Documented by: MILLA Sodium Chloride (Saline Flush) 2.5 ml FLUSH ASDIRECTED PRN PRN Reason: Keep Vein Open Last Admin: 12/20/19 15:18 Dose: 2.5 ml Documented by: MILLA Assessment/Plan Comment:: Assessment: 1. Chest pain evaluate for acute coronary syndrome 2. Hypertension 3. Past medical history of uncontrolled diabetes, BPH, hypertension, hypercholesterolemia, diastolic heart failure, COPD and CARYL Plan Admit to observation. Full code. I's and O's strict. vitals per routine. Diabetic diet 1. Recheck troponin every 3 hours x3. We will also check an A1c, TSH, BNP. Patient will be placed on telemetry and monitored. Strict I+O's +daily weights ; no overt signs of acute heart failure but would l camilo to assess for fluid status; history of Diastolic heart failure Mentions headache accompanies his elevated BP; vitals currently stable and asymptomatic; orthostatic vitals ordered in light of his new BP meds and headaches; denies dizziness/syncope etc. 2. Diabetes: Sliding scale insulin. A1c elevated from September 2019; sliding scale and further discussion about better glycemic control. 3. CARYL: continue home CPAP COVID negative <Mat Lyon - Last Filed: 12/22/19 12:40> H&P History of Present Illness - General Admit Problem/Dx: Admission Diagnosis/Problem Admission Diagnosis/Problem Chest pain - History of Present Illness Initial Comments - Free Text/Narative: I performed a history and physical exam of the patient and discussed management with resident. I have reviewed the residents note and agree with documented findings and plan unless otherwise specified in my note. Exam - Vital Signs Vital Signs: Last Vital Signs Temp 36.4 C 12/21/19 11:56 Pulse 72 12/21/19 11:56 Resp 22 H 12/21/19 11:56 BP 130/76 12/21/19 11:56 Pulse Ox 93 L 12/21/19 11:56 Orthostatic Blood Pressure [ 130/71 Standing] Orthostatic Blood Pressure [ 142/78 Sitting] Orthostatic Blood Pressure [ 149/85 Supine] - Patient Data Result Diagrams: 12/21/19 05:00 12/21/19 05:00
[2019-12-20] MEDS: Heparin Sodium 5,000 Units/ML Vial SUBCUT SCH (20:22)
[2019-12-20] MEDS: Carvedilol 6.25 MG Tab PO SCH (20:26)
[2019-12-20] MEDS: Diazepam 5 MG Tab PO SCH (20:26)
[2019-12-20] MEDS ORDERED: Pravastatin 40 MG Tab PO SCH (21:00)
[2019-12-20] MEDS ORDERED: Aspirin 81 MG Tab.EC PO SCH (21:00)
[2019-12-21 06:25] LABS: POTASSIUM,K 3.3 mmol/L (3.5-5.1)
[2019-12-21] MEDS: Heparin Sodium 5,000 Units/ML Vial SUBCUT SCH (06:53)
[2019-12-21] MEDS: Insulin Aspart 100 Units/ML 3 ML Pen SUBCUT SCH ×2 (07:39→12:38)
[2019-12-21] MEDS ORDERED: Potassium Chloride 20 MEQ Tab.ER PO ONE (08:01)
[2019-12-21] MEDS: Carvedilol 6.25 MG Tab PO SCH (08:35)
[2019-12-21] MEDS: Diazepam 5 MG Tab PO SCH (08:35)
[2019-12-21] MEDS ORDERED: Losartan 50 MG Tab PO SCH (09:00)
[2019-12-21] MEDS ORDERED: Tamsulosin 0.4 MG Cap.ER PO SCH (09:00)
[2019-12-21] MEDS ORDERED: Pantoprazole 40 MG in Sodium Chloride 0.9% 10 ML IV SCH (09:00)
[2019-12-21] MEDS ORDERED: Torsemide 20 MG Tab PO SCH (09:00)
--- NOTE | 2019-12-21 11:31 | PCM.DCSUM1 ---
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 Of note patient endorses recent change in blood pressure medications after having been seen by his tanning drum operator in [place]; Cardiac history per patient; stress test completed 6 months ago with no obvious issues. Patient states taking 1 baby aspirin prior to arrival to ED. Last echo 2018; ejection fraction 60% Patient was seen here in our ED 2 days prior secondary to elevated blood pressure and lightheadedness. Endorsed on stopping his lisinopril and atenolol and was started on amlodipine and losartan and was also given nitro sublingual PRN for chest pain. Admission: asymptomatic at bedside/inpatient. Mentions to me recording his BP on his phone but could not get his BP under control; cannot recall BP numbers. Otherwise has no acute complaints. CAnnot recall history of heart failure but endorses lower extremity swelling was worse and a "water pill" and his amlodipine were held by his/a tanning drum operator in [place] due to BP lability. Andres was also followed by cardiology in [place] since he spends winter down here; was told he might need an Angiogram; scheduled for May due to COVID. Course : troponin x 3 negative. telemetry did not show any significant new arrhythmias. Continued home BP medications. Orthostatic stable. Covid negative BG were elevated with A1c at 7.4 ; mentions being compliant with Metformin; was started on SSI inpatient; advised to follow up in outpatient setting for better glycemic control TSH also elevated at 5.14; T3 low at 2.06; conccers for early hypothyroidism also discussed; advised to follow up with PCP about rechecking levees in 4-6 weeks; no script provided as this TSH level may be appropriate for pt.s age and cardiac history; deferred need for referral to PCP. Following morning pt. was requesting discharge. No overnight events. Otherwise vitals were stable and pt. was discharged home with follow up with PCP and cardiology - Discharge Data Discharge Date: 12/21/19 Discharge Disposition: Home, Self-Care 01 Condition: Fair - Referral to Home Health Primary Care Physician: La Sweet MD - Patient Instructions Diet: Diabetic Diet Notify Provider of: Fever, Increased Pain, Nausea and/or Vomiting - Discharge Plan *PRESCRIPTION DRUG MONITORING PROGRAM REVIEWED*: No *COPY OF PRESCRIPTION DRUG MONITORING REPORT IN PATIENT PARISH: No Home Medications: Home Meds Finasteride 5 mg PO DAILY 12/17/19 [History] Montelukast [Singulair] 10 mg PO BEDTIME 12/17/19 [History] Nitroglycerin 0.4 mg SL ASDIRECTED 12/17/19 [History] Pravastatin [Pravachol] 80 mg PO BEDTIME 12/17/19 [History] Tamsulosin [Flomax] 0.4 mg PO DAILY 12/17/19 [History] Torsemide [Demadex] 40 mg PO DAILY 12/17/19 [History] carvediloL [Carvedilol] 6.25 mg PO BID 12/17/19 [History] diazePAM [Valium.] 5 mg PO BID 12/17/19 [History] metFORMIN [Glucophage] 1,000 mg PO BID 12/17/19 [History] Aspirin [Low Dose Aspirin EC] 81 mg PO BEDTIME 12/20/19 [History] Cholecalciferol (Vitamin D3) [Vitamin D3] 5,000 unit PO DAILY 12/20/19 [History] Losartan [Cozaar] 100 mg PO DAILY 12/20/19 [History] Non-Formulary Medication [NF Drug] 1 tab PO DAILY 12/20/19 [History] Turm/Ging/Ha/Yuc/Wilton/Aldair/Hor [Tumersaid Tablet] 12/20/19 [History] Nitroglycerin [Nitrostat] 0.4 mg SL Q5M PRN tab.sl 12/21/19 [Rx] Oxygen Therapy Mode: CPAP (at night) Patient Handouts: Type 2 Diabetes Mellitus, Diagnosis, Adult, Nonspecific Chest Pain, Adult, Angina, Hypertension, Adult Referrals: Kelly Pollard MD [Physician] - 12/30/19 11:30 am (Please arrive 15 minutes early with your ID, insurance card and wearing a face covering) Malick Sweet MD [Physician] - 01/05/20 9:30 am (Please arrive 15 minutes early with your ID and wearing a face mask - hospital physicians recommend rechecking your TSH level in one month, please mention this to Dr. Small at your follow up. Thank you!) - Discharge Summary/Plan Comment DC Time >30 min.: No - Patient Data Vitals - Most Recent: Last Vital Signs Temp 97.0 F 12/21/19 03:38 Pulse 71 12/21/19 08:35 Resp 19 12/21/19 03:40 BP 136/73 12/21/19 08:35 Pulse Ox 92 L 12/21/19 03:40 Orthostatic Blood Pressure [ 130/71 Standing] Orthostatic Blood Pressure [ 142/78 Sitting] Orthostatic Blood Pressure [ 149/85 Supine] Weight - Most Recent: 111.4 kg I&O - Last 24 hours: Intake & Output 12/20/19 12/21/19 12/21/19 22:59 06:59 14:59 Intake Total 700 Output Total 500 Balance 200 Lab Results - Last 24 hrs: Laboratory Results - last 24 hr 12/20/19 12/20/19 12/20/19 Range/Units 14:50 14:50 14:50 WBC 11.79 H (4.0-11.0) K/uL RBC 5.85 (4.50-5.90) M/uL Hgb 16.2 (13.0-17.0) g/dL Hct 50.7 H (38.0-50.0) % MCV 86.7 (80.0-98.0) fL MCH 27.7 (27.0-32.0) pg MCHC 32.0 (31.0-37.0) g/dL RDW Std Deviation 45.6 (28.0-62.0) fl RDW Coeff of Carissa 14 (11.0-15.0) % Plt Count 247 (150-400) K/uL MPV 10.00 (7.40-12.00) fL Neut % (Auto) 77.9 (48.0-80.0) % Lymph % (Auto) 10.8 L (16.0-40.0) % [place] % (Auto) 8.3 (0.0-15.0) % Eos % (Auto) 2.7 (0.0-7.0) % Baso % (Auto) 0.3 (0.0-1.5) % Neut # (Auto) 9.2 H (1.4-5.7) K/uL Lymph # (Auto) 1.3 (0.6-2.4) K/uL [place] # (Auto) 1.0 H (0.0-0.8) K/uL Eos # (Auto) 0.3 (0.0-0.7) K/uL Baso # (Auto) 0.0 (0.0-0.1) K/uL Nucleated RBC % 0.0 /100WBC Nucleated RBCs # 0 K/uL Sodium 138 (136-148) mmol/L Potassium 4.2 (3.5-5.1) mmol/L Chloride 99 (98-107) mmol/L Carbon Dioxide 29.6 (21.0-32.0) mmol/L BUN 20 H (7.0-18.0) mg/dL Creatinine 1.3 (0.8-1.3) mg/dL Est Cr Clr Drug Dosing 46.08 mL/min Estimated GFR (MDRD) 53.3 ml/min Glucose 183 H (74-106) mg/dL POC Glucose (60-110) mg/dL Hemoglobin A1c 7.4 H (4.5-6.2) % Calcium 8.9 (8.5-10.1) mg/dL Total Bilirubin 0.4 (0.2-1.0) mg/dL AST 19 (15-37) IU/L ALT 40 (14-63) IU/L Alkaline Phosphatase 91 (46-116) U/L Troponin I < 0.050 (0.000-0.056) ng/mL Total Protein 7.9 (6.4-8.2) g/dL Albumin 3.8 (3.4-5.0) g/dL Globulin 4.1 H (2.6-4.0) g/dL Albumin/Globulin Ratio 0.9 (0.9-1.6) Free T4 (0.76-1.46) ng/dL Free T3 (2.18-3.98) pg/mL TSH 3rd Generation (0.36-3.74) uIU/mL Urine Color Urine Appearance Urine pH (5.0-8.0) Ur Specific [place] (1.001-1.035) Urine Protein (NEGATIVE) mg/dL Urine Glucose (UA) (NEGATIVE) mg/dL Urine Ketones (NEGATIVE) mg/dL Urine Occult Blood (NEGATIVE) Urine Nitrite (NEGATIVE) Urine Bilirubin (NEGATIVE) Urine Urobilinogen (<2.0) EU/dL Ur Leukocyte Esterase (NEGATIVE) SARS Virus RNA (PCR) (NEGATIVE) 12/20/19 12/20/19 12/20/19 Range/Units 14:50 15:30 16:25 WBC (4.0-11.0) K/uL RBC (4.50-5.90) M/uL Hgb (13.0-17.0) g/dL Hct (38.0-50.0) % MCV (80.0-98.0) fL MCH (27.0-32.0) pg MCHC (31.0-37.0) g/dL RDW Std Deviation (28.0-62.0) fl RDW Coeff of Carissa (11.0-15.0) % Plt Count (150-400) K/uL MPV (7.40-12.00) fL Neut % (Auto) (48.0-80.0) % Lymph % (Auto) (16.0-40.0) % [place] % (Auto) (0.0-15.0) % Eos % (Auto) (0.0-7.0) % Baso % (Auto) (0.0-1.5) % Neut # (Auto) (1.4-5.7) K/uL Lymph # (Auto) (0.6-2.4) K/uL [place] # (Auto) (0.0-0.8) K/uL Eos # (Auto) (0.0-0.7) K/uL Baso # (Auto) (0.0-0.1) K/uL Nucleated RBC % /100WBC Nucleated RBCs # K/uL Sodium (136-148) mmol/L Potassium (3.5-5.1) mmol/L Chloride (98-107) mmol/L Carbon Dioxide (21.0-32.0) mmol/L BUN (7.0-18.0) mg/dL Creatinine (0.8-1.3) mg/dL Est Cr Clr Drug Dosing mL/min Estimated GFR (MDRD) ml/min Glucose (74-106) mg/dL POC Glucose (60-110) mg/dL Hemoglobin A1c (4.5-6.2) % Calcium (8.5-10.1) mg/dL Total Bilirubin (0.2-1.0) mg/dL AST (15-37) IU/L ALT (14-63) IU/L Alkaline Phosphatase (46-116) U/L Troponin I (0.000-0.056) ng/mL Total Protein (6.4-8.2) g/dL Albumin (3.4-5.0) g/dL Globulin (2.6-4.0) g/dL Albumin/Globulin Ratio (0.9-1.6) Free T4 (0.76-1.46) ng/dL Free T3 (2.18-3.98) pg/mL TSH 3rd Generation 5.14 H (0.36-3.74) uIU/mL Urine Color YELLOW Urine Appearance CLEAR Urine pH 7.0 (5.0-8.0) Ur Specific [place] 1.015 (1.001-1.035) Urine Protein NEGATIVE (NEGATIVE) mg/dL Urine Glucose (UA) NEGATIVE (NEGATIVE) mg/dL Urine Ketones NEGATIVE (NEGATIVE) mg/dL Urine Occult Blood NEGATIVE (NEGATIVE) Urine Nitrite NEGATIVE (NEGATIVE) Urine Bilirubin NEGATIVE (NEGATIVE) Urine Urobilinogen 0.2 (<2.0) EU/dL Ur Leukocyte Esterase NEGATIVE (NEGATIVE) SARS Virus RNA (PCR) NEGATIVE (NEGATIVE) 12/20/19 12/20/19 12/20/19 Range/Units 17:40 18:05 21:05 WBC (4.0-11.0) K/uL RBC (4.50-5.90) M/uL Hgb (13.0-17.0) g/dL Hct (38.0-50.0) % MCV (80.0-98.0) fL MCH (27.0-32.0) pg MCHC (31.0-37.0) g/dL RDW Std Deviation (28.0-62.0) fl RDW Coeff of Carissa (11.0-15.0) % Plt Count (150-400) K/uL MPV (7.40-12.00) fL Neut % (Auto) (48.0-80.0) % Lymph % (Auto) (16.0-40.0) % [place] % (Auto) (0.0-15.0) % Eos % (Auto) (0.0-7.0) % Baso % (Auto) (0.0-1.5) % Neut # (Auto) (1.4-5.7) K/uL Lymph # (Auto) (0.6-2.4) K/uL [place] # (Auto) (0.0-0.8) K/uL Eos # (Auto) (0.0-0.7) K/uL Baso # (Auto) (0.0-0.1) K/uL Nucleated RBC % /100WBC Nucleated RBCs # K/uL Sodium (136-148) mmol/L Potassium (3.5-5.1) mmol/L Chloride (98-107) mmol/L Carbon Dioxide (21.0-32.0) mmol/L BUN (7.0-18.0) mg/dL Creatinine (0.8-1.3) mg/dL Est Cr Clr Drug Dosing mL/min Estimated GFR (MDRD) ml/min Glucose (74-106) mg/dL POC Glucose 141 H (60-110) mg/dL Hemoglobin A1c (4.5-6.2) % Calcium (8.5-10.1) mg/dL Total Bilirubin (0.2-1.0) mg/dL AST (15-37) IU/L ALT (14-63) IU/L Alkaline Phosphatase (46-116) U/L Troponin I < 0.050 < 0.050 (0.000-0.056) ng/mL Total Protein (6.4-8.2) g/dL Albumin (3.4-5.0) g/dL Globulin (2.6-4.0) g/dL Albumin/Globulin Ratio (0.9-1.6) Free T4 (0.76-1.46) ng/dL Free T3 (2.18-3.98) pg/mL TSH 3rd Generation (0.36-3.74) uIU/mL Urine Color Urine Appearance Urine pH (5.0-8.0) Ur Specific [place] (1.001-1.035) Urine Protein (NEGATIVE) mg/dL Urine Glucose (UA) (NEGATIVE) mg/dL Urine Ketones (NEGATIVE) mg/dL Urine Occult Blood (NEGATIVE) Urine Nitrite (NEGATIVE) Urine Bilirubin (NEGATIVE) Urine Urobilinogen (<2.0) EU/dL Ur Leukocyte Esterase (NEGATIVE) SARS Virus RNA (PCR) (NEGATIVE) 12/20/19 12/21/19 12/21/19 Range/Units 21:05 05:00 05:00 WBC 8.41 (4.0-11.0) K/uL RBC 5.10 (4.50-5.90) M/uL Hgb 13.8 (13.0-17.0) g/dL Hct 44.7 (38.0-50.0) % MCV 87.6 (80.0-98.0) fL MCH 27.1 (27.0-32.0) pg MCHC 30.9 L (31.0-37.0) g/dL RDW Std Deviation 46.4 (28.0-62.0) fl RDW Coeff of Carissa 14 (11.0-15.0) % Plt Count 212 (150-400) K/uL MPV 10.30 (7.40-12.00) fL Neut % (Auto) 69.4 (48.0-80.0) % Lymph % (Auto) 17.2 (16.0-40.0) % [place] % (Auto) 9.8 (0.0-15.0) % Eos % (Auto) 3.2 (0.0-7.0) % Baso % (Auto) 0.4 (0.0-1.5) % Neut # (Auto) 5.8 H (1.4-5.7) K/uL Lymph # (Auto) 1.5 (0.6-2.4) K/uL [place] # (Auto) 0.8 (0.0-0.8) K/uL Eos # (Auto) 0.3 (0.0-0.7) K/uL Baso # (Auto) 0.0 (0.0-0.1) K/uL Nucleated RBC % 0.0 /100WBC Nucleated RBCs # 0 K/uL Sodium 140 (136-148) mmol/L Potassium 3.3 L (3.5-5.1) mmol/L Chloride 102 (98-107) mmol/L Carbon Dioxide 28.0 (21.0-32.0) mmol/L BUN 21 H (7.0-18.0) mg/dL Creatinine 1.3 (0.8-1.3) mg/dL Est Cr Clr Drug Dosing 46.08 mL/min Estimated GFR (MDRD) 53.3 ml/min Glucose 277 H (74-106) mg/dL POC Glucose (60-110) mg/dL Hemoglobin A1c (4.5-6.2) % Calcium 8.9 (8.5-10.1) mg/dL Total Bilirubin (0.2-1.0) mg/dL AST (15-37) IU/L ALT (14-63) IU/L Alkaline Phosphatase (46-116) U/L Troponin I (0.000-0.056) ng/mL Total Protein (6.4-8.2) g/dL Albumin (3.4-5.0) g/dL Globulin (2.6-4.0) g/dL Albumin/Globulin Ratio (0.9-1.6) Free T4 1.02 (0.76-1.46) ng/dL Free T3 2.06 L (2.18-3.98) pg/mL TSH 3rd Generation (0.36-3.74) uIU/mL Urine Color Urine Appearance Urine pH (5.0-8.0) Ur Specific [place] (1.001-1.035) Urine Protein (NEGATIVE) mg/dL Urine Glucose (UA) (NEGATIVE) mg/dL Urine Ketones (NEGATIVE) mg/dL Urine Occult Blood (NEGATIVE) Urine Nitrite (NEGATIVE) Urine Bilirubin (NEGATIVE) Urine Urobilinogen (<2.0) EU/dL Ur Leukocyte Esterase (NEGATIVE) SARS Virus RNA (PCR) (NEGATIVE) 12/21/19 12/21/19 Range/Units 06:32 09:50 WBC (4.0-11.0) K/uL RBC (4.50-5.90) M/uL Hgb (13.0-17.0) g/dL Hct (38.0-50.0) % MCV (80.0-98.0) fL MCH (27.0-32.0) pg MCHC (31.0-37.0) g/dL RDW Std Deviation (28.0-62.0) fl RDW Coeff of Carissa (11.0-15.0) % Plt Count (150-400) K/uL MPV (7.40-12.00) fL Neut % (Auto) (48.0-80.0) % Lymph % (Auto) (16.0-40.0) % [place] % (Auto) (0.0-15.0) % Eos % (Auto) (0.0-7.0) % Baso % (Auto) (0.0-1.5) % Neut # (Auto) (1.4-5.7) K/uL Lymph # (Auto) (0.6-2.4) K/uL [place] # (Auto) (0.0-0.8) K/uL Eos # (Auto) (0.0-0.7) K/uL Baso # (Auto) (0.0-0.1) K/uL Nucleated RBC % /100WBC Nucleated RBCs # K/uL Sodium (136-148) mmol/L Potassium (3.5-5.1) mmol/L Chloride (98-107) mmol/L Carbon Dioxide (21.0-32.0) mmol/L BUN (7.0-18.0) mg/dL Creatinine (0.8-1.3) mg/dL Est Cr Clr Drug Dosing mL/min Estimated GFR (MDRD) ml/min Glucose (74-106) mg/dL POC Glucose 256 H 110 (60-110) mg/dL Hemoglobin A1c (4.5-6.2) % Calcium (8.5-10.1) mg/dL Total Bilirubin (0.2-1.0) mg/dL AST (15-37) IU/L ALT (14-63) IU/L Alkaline Phosphatase (46-116) U/L Troponin I (0.000-0.056) ng/mL Total Protein (6.4-8.2) g/dL Albumin (3.4-5.0) g/dL Globulin (2.6-4.0) g/dL Albumin/Globulin Ratio (0.9-1.6) Free T4 (0.76-1.46) ng/dL Free T3 (2.18-3.98) pg/mL TSH 3rd Generation (0.36-3.74) uIU/mL Urine Color Urine Appearance Urine pH (5.0-8.0) Ur Specific [place] (1.001-1.035) Urine Protein (NEGATIVE) mg/dL Urine Glucose (UA) (NEGATIVE) mg/dL Urine Ketones (NEGATIVE) mg/dL Urine Occult Blood (NEGATIVE) Urine Nitrite (NEGATIVE) Urine Bilirubin (NEGATIVE) Urine Urobilinogen (<2.0) EU/dL Ur Leukocyte Esterase (NEGATIVE) SARS Virus RNA (PCR) (NEGATIVE) Med Orders - Current: Current Medications Aspirin (Halfprin) 81 mg PO BEDTIME [facility] Last Admin: 12/20/19 20:26 Dose: 81 mg Documented by: Carvedilol (Coreg) 6.25 mg PO BID [facility] Last Admin: 12/21/19 08:35 Dose: 6.25 mg Documented by: Diazepam (Valium.) 5 mg PO BID [facility] Last Admin: 12/21/19 08:35 Dose: 5 mg Documented by: Heparin Sodium (Porcine) (Heparin Sodium) 5,000 units SUBCUT Q12H [facility] Last Admin: 12/21/19 06:53 Dose: 5,000 units Documented by: Pantoprazole Sodium 40 mg/ (Sodium Chloride) 10 mls @ 300 mls/hr IV DAILY [facility] Last Admin: 12/21/19 08:36 Dose: 300 mls/hr Documented by: Insulin Aspart (Novolog) 0 unit SUBCUT TIDAC [facility]; Protocol Last Admin: 12/21/19 07:39 Dose: 6 units Documented by: Losartan Potassium (Cozaar) 100 mg PO DAILY [facility] Last Admin: 12/21/19 08:32 Dose: 100 mg Documented by: Nitroglycerin (Nitrostat) 0.4 mg SL Q5M PRN PRN Reason: Chest Pain Last Admin: 12/20/19 17:15 Dose: 0.4 mg Documented by: Pravastatin Sodium (Pravachol) 80 mg PO BEDTIME [facility] Last Admin: 12/20/19 20:26 Dose: 80 mg Documented by: Sodium Chloride (Saline Flush) 10 ml FLUSH ASDIRECTED PRN PRN Reason: Keep Vein Open Last Admin: 12/20/19 15:18 Dose: 10 ml Documented by: Sodium Chloride (Saline Flush) 2.5 ml FLUSH ASDIRECTED PRN PRN Reason: Keep Vein Open Last Admin: 12/20/19 15:18 Dose: 2.5 ml Documented by: Tamsulosin HCl (Flomax) 0.4 mg PO DAILY [facility] Last Admin: 12/21/19 08:33 Dose: 0.4 mg Documented by: Torsemide (Demadex) 40 mg PO DAILY [facility] Last Admin: 12/21/19 08:33 Dose: 40 mg Documented by: Discontinued Medications Aspirin (Aspirin) 243 mg PO ONETIME ONE Stop: 12/20/19 15:14 Last Admin: 12/20/19 15:17 Dose: 243 mg Documented by: Potassium Chloride (Klor-Con M20) 40 meq PO ONETIME ONE Stop: 12/21/19 08:02 Last Admin: 12/21/19 08:34 Dose: 40 meq Documented by: <Mat Lyon - Last Filed: 12/22/19 12:59> Discharge Summary - Hospital Course Free Text/Narrative:: I have seen and evaluated the patient and agree with the residents note unless specified in my note - Referral to Home Health Primary Care Physician: La Sweet MD - Patient Data Vitals - Most Recent: Last Vital Signs Temp 36.4 C 12/21/19 11:56 Pulse 72 12/21/19 11:56 Resp 22 H 12/21/19 11:56 BP 130/76 12/21/19 11:56 Pulse Ox 93 L 12/21/19 11:56 Orthostatic Blood Pressure [ 130/71 Standing] Orthostatic Blood Pressure [ 142/78 Sitting] Orthostatic Blood Pressure [ 149/85 Supine] Med Orders - Current: Current Medications Discontinued Medications Aspirin (Aspirin) 243 mg PO ONETIME ONE Stop: 12/20/19 15:14 Last Admin: 12/20/19 15:17 Dose: 243 mg Documented by: Aspirin (Halfprin) 81 mg PO BEDTIME [facility] Last Admin: 12/20/19 20:26 Dose: 81 mg Documented by: Carvedilol (Coreg) 6.25 mg PO BID [facility] Last Admin: 12/21/19 08:35 Dose: 6.25 mg Documented by: Diazepam (Valium.) 5 mg PO BID [facility] Last Admin: 12/21/19 08:35 Dose: 5 mg Documented by: Heparin Sodium (Porcine) (Heparin Sodium) 5,000 units SUBCUT Q12H [facility] Last Admin: 12/21/19 06:53 Dose: 5,000 units Documented by: Pantoprazole Sodium 40 mg/ (Sodium Chloride) 10 mls @ 300 mls/hr IV DAILY [facility] Last Admin: 09/08/20 08:36 Dose: 300 mls/hr Documented by: Insulin Aspart (Novolog) 0 unit SUBCUT TIDAC [facility]; Protocol Last Admin: 12/21/19 12:38 Dose: Not Given Documented by: Losartan Potassium (Cozaar) 100 mg PO DAILY [facility] Last Admin: 12/21/19 08:32 Dose: 100 mg Documented by: Nitroglycerin (Nitrostat) 0.4 mg SL Q5M PRN PRN Reason: Chest Pain Last Admin: 12/20/19 17:15 Dose: 0.4 mg Documented by: Potassium Chloride (Klor-Con M20) 40 meq PO ONETIME ONE Stop: 12/21/19 08:02 Last Admin: 12/21/19 08:34 Dose: 40 meq Documented by: Pravastatin Sodium (Pravachol) 80 mg PO BEDTIME [facility] Last Admin: 12/20/19 20:26 Dose: 80 mg Documented by: Sodium Chloride (Saline Flush) 10 ml FLUSH ASDIRECTED PRN PRN Reason: Keep Vein Open Last Admin: 12/20/19 15:18 Dose: 10 ml Documented by: Sodium Chloride (Saline Flush) 2.5 ml FLUSH ASDIRECTED PRN PRN Reason: Keep Vein Open Last Admin: 12/20/19 15:18 Dose: 2.5 ml Documented by: Tamsulosin HCl (Flomax) 0.4 mg PO DAILY [facility] Last Admin: 12/21/19 08:33 Dose: 0.4 mg Documented by: Torsemide (Demadex) 40 mg PO DAILY [facility] Last Admin: 12/21/19 08:33 Dose: 40 mg Documented by:
== END 2019-12-21 14:45 | disposition home or self-care (01) ==
LOC: MW.ED 14:40 → MW.MS 16:35
PROVIDERS: ADMIT Student in an Organized Health Care Education/Training Program; ATTEND Student in an Organized Health Care Education/Training Program
DX: R07.9 Chest pain, unspecified (principal); E11.9 Type 2 diabetes mellitus without complications; N40.0 Benign prostatic hyperplasia without lower urinary tract symptoms; E78.00 Pure hypercholesterolemia, unspecified; I11.0 Hypertensive heart disease with heart failure; I50.30 Unspecified diastolic (congestive) heart failure; J44.9 Chronic obstructive pulmonary disease, unspecified; G47.33 Obstructive sleep apnea (adult) (pediatric); Z79.899 Other long term (current) drug therapy; Z79.82 Long term (current) use of aspirin; Z79.84 Long term (current) use of oral hypoglycemic drugs; Z87.891 Personal history of nicotine dependence; Z95.1 Presence of aortocoronary bypass graft; Z20.828 Contact with and (suspected) exposure to other viral communicable diseases
CPT/HCPCS: 36415; 71045; 80048; 80053; 81003; 82962; 83036; 84439; 84443; 84481; 84484; 85025; 93005; 96372; 96374; 99285; A9270; C9113; G0378; J1644; J1815; J7050; U0002; 93010; 99217; 99218

== ENCOUNTER 2023-01-05 11:19 | Emergency (ER) | payer MEDICARE, BC ==
[2023-01-05] MEDS ORDERED: Albuterol/Ipratropium 3.0-0.5 MG/3 ML Neb Soln NEB ONE (11:30)
[2023-01-05] MEDS ORDERED: Furosemide 20 MG/2 ML VIAL IVPUSH ONE (11:33)
[2023-01-05 11:44] LABS: BASOPHILS ABSOLUTE AUTO 0.1 K/uL (0.0-0.1); BASOPHILS PERCENT AUTO 0.6 % (0.0-1.5); EOSINOPHILS ABSOLUTE AUTO 0.3 K/uL (0.0-0.7); EOSINOPHILS PERCENT AUTO 3.5 % (0.0-7.0); HEMATOCRIT 46.2 % (38.0-50.0); HEMOGLOBIN 14.7 g/dL (13.0-17.0); LYMPHOCYTES ABSOLUTE AUTO 1.2 K/uL (0.6-2.4); LYMPHOCYTES PERCENT AUTO 13.5 % (16.0-40.0); MEAN CORPUSCULAR HEMOGLOBIN 27.5 pg (27.0-32.0); MEAN CORPUSCULAR HGB CONC 31.8 g/dL (31.0-37.0); MEAN CORPUSCULAR VOLUME 86.4 fL (80.0-98.0); MONOCYTES ABSOLUTE AUTO 0.8 K/uL (0.0-0.8); MONOCYTES PERCENT AUTO 9.2 % (0.0-15.0); NEUTROPHILS ABSOLUTE AUTO 6.2 K/uL (1.4-5.7); NEUTROPHILS PERCENT AUTO 73.2 % (48.0-80.0); NRBC ABSOLUTE 0 K/uL; PLATELET COUNT,PLT 277 K/uL (150-400); RED BLOOD CELL COUNT 5.35 M/uL (4.50-5.90); WHITE BLOOD CELL COUNT,WBC 8.49 K/uL (4.0-11.0)
[2023-01-05 12:08] LABS: A/G RATIO 0.9 (0.9-1.6); ALBUMIN 3.6 g/dL (3.4-5.0); BILIRUBIN TOTAL 0.5 mg/dL (0.2-1.0); C-REACTIVE PROTEIN 0.3 mg/dL (0.00-0.90); CALCIUM 8.3 mg/dL (8.5-10.1); CARBON DIOXIDE,CO2 28.6 mmol/L (21.0-32.0); CREATININE 1.1 mg/dL (0.8-1.3); EST CRCL DRUG DOSING (CG) 51.78 mL/min; MAGNESIUM 1.9 mg/dL (1.8-2.4); POTASSIUM,K 4.1 mmol/L (3.5-5.1); PROTEIN TOTAL,TP 7.7 g/dL (6.4-8.2)
[2023-01-05] MEDS ORDERED: Iopamidol 755 Mg/ML 100 ML Bottle IVPUSH ONE (13:14)
== END 2023-01-05 15:02 | disposition home or self-care (01) ==
LOC: MW.ED 11:19
DX: J81.1 Chronic pulmonary edema (principal); I10 Essential (primary) hypertension; E11.9 Type 2 diabetes mellitus without complications; Z79.899 Other long term (current) drug therapy; Z79.84 Long term (current) use of oral hypoglycemic drugs; Z79.82 Long term (current) use of aspirin; Z20.822 Contact with and (suspected) exposure to COVID-19
CPT/HCPCS: 36415; 71045; 71275; 80053; 83735; 83880; 84484; 85025; 86140; 93005; 96374; 99285; J1940; Q9967; U0002; 93010; 99284; J7620-GY